=== PATIENT | female | born 1995 | race Caucasian/White ===

== ENCOUNTER 2024-05-04 12:14 | Inpatient (IN) | payer OTHER ==
[~2024-05-04] VITALS: Ht 154.9 cm; Wt 53.5 kg
[2024-05-04] MEDS ORDERED: TRANEXAMIC ACI650 MG PO (13:03)
[2024-05-04] MEDS ORDERED: FERRO-TIME325 MG PO (13:03)
[2024-05-04] MEDS ORDERED: 0.9 % SODIUM CHLORIDE 1,000 ML IV STA (13:16)
[2024-05-04 14:24] LABS: HEMATOCRIT 30.9 % (36.0-45.00); MEAN CORPUSCULAR HGB CONC 32.5 g/dl (32.0-36.0); PLATELET COUNT 227 K/uL (150-450); RED BLOOD COUNT 3.87 M/uL (4.00-6.00)
[2024-05-04 14:26] LABS: RED CELL DISTRIBUTION WIDTH 25.7 % (11.5-14.5)
[2024-05-04] MEDS ORDERED: DESMOPRESSIN ACETATE 4 MCG/ML AMPUL IV ONE (14:30)
[2024-05-04] MEDS ORDERED: AMINOCAPROIC ACID 250 MG/ML VIAL IV ONE (14:30)
[2024-05-04 14:36] LABS: PH,URINE 7.5 (5.0-8.0); URINE APPEARANCE Clear; URINE BILIRRUBIN Negative (NEGATIVE); URINE BLOOD Moderate; URINE COLOR Yellow; URINE GLUCOSE Negative (NEGATIVE); URINE KETONE Negative (NEGATIVE); URINE LEUKOCYTE Negative; URINE NITRATE Negative; URINE PROTEIN Negative (NEGATIVE); URINE UROBILINOGEN 0.2 E.U./dl
[2024-05-04 14:41] LABS: URINE BACTERIA 63.5 uL (0.0-1933); URINE RBC 12.7 uL (0.0-20.8)
[2024-05-04 15:08] LABS: INR 0.97; PARTIAL THROMBOPLASTIN TIME 27.8 SECONDS (22.0-34.0); PROTHROMBIN TIME 10.6 SECONDS (9.0-11.5)
[2024-05-04 15:20] LABS: URINE EPITHELIAL CELLS 1.1 uL (0.0-38.8); URINE WBC 1.2 uL (0.0-23.2)
[2024-05-04 16:03] LABS: ALBUMIN 3.4 gm/dL (3.4-5.0); BILIRUBIN TOTAL 0.17 mg/dL (0.3-1.2); CALCIUM 8.6 mg/dL (8.5-10.1); CREATININE SERUM 0.61 mg/dL (0.55-1.02); GFR 114.4; GLOBULINA 3.9 G/DL (2.4-3.5); POTASSIUM 3.94 mEq/L (3.5-5.1); TOTAL PROTEIN 7.3 gm/dL (6.4-8.2)
[2024-05-04] MEDS ORDERED: ACETAMINOPHEN 500 MG GEL..CAP PO PRN (19:00)
[2024-05-04] MEDS ORDERED: 0.9 % SODIUM CHLORIDE 1,000 ML IV SCH (19:00)
[2024-05-05] VITALS: BP 136/85; O2SAT 98
[2024-05-05 01:30] VITALS: BP 136/74
[2024-05-05] MEDS ORDERED: AMINOCAPROIC ACID 250 MG/ML VIAL IV SCH (05:00)
[2024-05-05 08:00] VITALS: BP 140/80
[2024-05-05] MEDS ORDERED: SOD FERRIC GLUC COMPLX/SUCROSE 62.5 MG in 0.9 % SODIUM CHLORIDE 50 ML IV SCH (09:00)
[2024-05-05] MEDS ORDERED: PANTOPRAZOLE SODIUM 40 MG/VIAL VIAL IV SCH (09:00)
[2024-05-05] MEDS ORDERED: OxyCODONE HCL/APAP UD (PERCOCET) PO PRN (14:30)
[2024-05-05 16:17] VITALS: BP 144/88
[2024-05-05] MEDS ORDERED: CYCLOBENZAPRINE HCL 5 MG TABLET PO SCH (17:00)
[2024-05-05 19:28] LABS: HEMOGLOBIN 11.4 g/dL (12.0-15.00); MEAN CELL VOLUME 82.5 fL (80.00-100.00); MEAN CORPUSCULAR HEMOGLOBIN 26.8 pg (27.00-32.0); MEAN CORPUSCULAR HGB CONC 32.4 g/dl (32.0-36.0); PLATELET COUNT 207 K/uL (150-450); RED BLOOD COUNT 4.25 M/uL (4.00-6.00); RED CELL DISTRIBUTION WIDTH 23.2 % (11.5-14.5)
[2024-05-06 00:40] VITALS: BP 117/73
[2024-05-06] MEDS ORDERED: PATIENTS OWN MEDICATION (MEDICAMENTO EN PISO) PO SCH (01:00)
[2024-05-06] MEDS ORDERED: AMINOCAPROIC ACID 1,000 MG in 0.9 % SODIUM CHLORIDE 250 ML IV SCH ×3 (07:15→13:00)
[2024-05-06 08:00] VITALS: BP 123/80
[2024-05-06] MEDS ORDERED: AMINOCAPROIC ACID 20 MG/ML ML IV SCH (09:00)
[2024-05-06 11:32] LABS: HEMATOCRIT 35.6 % (36.0-45.00); HEMOGLOBIN 11.7 g/dL (12.0-15.00); MEAN CELL VOLUME 82.2 fL (80.00-100.00); MEAN CORPUSCULAR HEMOGLOBIN 27.1 pg (27.00-32.0); PLATELET COUNT 215 K/uL (150-450); RED BLOOD COUNT 4.33 M/uL (4.00-6.00); RED CELL DISTRIBUTION WIDTH 23.4 % (11.5-14.5)
[2024-05-06 16:03] VITALS: BP 132/85
[2024-05-06] MEDS ORDERED: VASOPRESSIN 20 UNITS/ML VIAL IJ ONE (22:30)
[2024-05-07 00:07] VITALS: BP 113/71
[2024-05-07] MEDS ORDERED: BUPIVACAINE HCL/MPF 0.5% 30ML VIAL ONE (06:56)
[2024-05-07] MEDS ORDERED: POVIDONE-IODINE 118 ML BOTT TOP ONE ×2 (06:56→09:45)
[2024-05-07] MEDS ORDERED: LIDOCAINE HCL 1%/EPINEPHRINE 20ML VIAL IJ ONE (06:56)
[2024-05-07] MEDS ORDERED: AMINOCAPROIC ACID 250 MG/ML VIAL IV ONE (07:10)
[2024-05-07 07:39] LABS: HEMATOCRIT 33.3 % (36.0-45.00); MEAN CELL VOLUME 83.3 fL (80.00-100.00); MEAN CORPUSCULAR HEMOGLOBIN 27.4 pg (27.00-32.0); MEAN CORPUSCULAR HGB CONC 32.9 g/dl (32.0-36.0); PLATELET COUNT 235 K/uL (150-450); RED CELL DISTRIBUTION WIDTH 23.8 % (11.5-14.5)
[2024-05-07] MEDS ORDERED: AMINOCAPROIC ACID 250 MG/ML VIAL IV NR (08:00)
[2024-05-07] MEDS ORDERED: DESMOPRESSIN ACETATE 4 MCG/ML AMPUL IV NR (08:00)
[2024-05-07] MEDS ORDERED: CEFAZOLIN SODIUM 1,000 MG VIAL ONE (08:07)
[2024-05-07] MEDS ORDERED: PANTOPRAZOLE SODIUM 40 MG/VIAL VIAL ONE (09:41)
[2024-05-07] MEDS ORDERED: CEFAZOLIN SODIUM 1,000 MG VIAL IV ONE (09:45)
[2024-05-07] MEDS ORDERED: THROMBIN,HU/FIBRINOGEN/CALCIUM 10 ML SYRINGE TOP ONE ×2 (10:07→10:15)
[2024-05-07] MEDS ORDERED: VISTASEAL DUAL APPICATOR 1 EACH APPL TOP ONE ×2 (10:07→10:15)
[2024-05-07] MEDS ORDERED: SUGAMMADEX SODIUM 200 MG/2 ML VIAL IV ONE ×2 (11:44→12:15)
[2024-05-07] MEDS ORDERED: MORPHINE SULFATE 4 MG/ML VIAL IV ONE ×2 (13:10→13:40)
[2024-05-07] MEDS ORDERED: RINGERS SOLUTION,LACTATED 1,000 ML IV SCH (13:30)
[2024-05-07 13:57] VITALS: BP 123/79
[2024-05-07] MEDS ORDERED: FAMOTIDINE/PF 20 MG/2 ML VIAL IV SCH (14:26)
[2024-05-07] MEDS ORDERED: OxyCODONE HCL/APAP UD (PERCOCET) PO PRN (14:45)
[2024-05-07] MEDS ORDERED: ONDANSETRON HCL 2 MG/ML VIAL IV PRN (14:45)
[2024-05-07 15:00] VITALS: BP 115/74
[2024-05-07 15:42] VITALS: O2SAT 100
[2024-05-07] MEDS ORDERED: SOD FERRIC GLUC COMPLX/SUCROSE 62.5 MG in 0.9 % SODIUM CHLORIDE 50 ML IV SCH (17:00)
[2024-05-07 17:31] LABS: HEMATOCRIT 34.4 % (36.0-45.00); HEMOGLOBIN 10.9 g/dL (12.0-15.00); MEAN CELL VOLUME 84.8 fL (80.00-100.00); MEAN CORPUSCULAR HEMOGLOBIN 26.9 pg (27.00-32.0); MEAN CORPUSCULAR HGB CONC 31.8 g/dl (32.0-36.0); PLATELET COUNT 219 K/uL (150-450); RED BLOOD COUNT 4.05 M/uL (4.00-6.00); RED CELL DISTRIBUTION WIDTH 23.7 % (11.5-14.5)
[2024-05-07] MEDS ORDERED: PROMETHAZINE HCL 50 MG/ML AMPUL IM ONE (18:45)
[2024-05-07] MEDS ORDERED: MORPHINE SULFATE 2 MG/ML CARTRIDGE IV PRN (19:00)
[2024-05-07] MEDS ORDERED: PROMETHAZINE HCL 25 MG/ML AMPUL IV NR (19:00)
[2024-05-08 02:29] VITALS: BP 116/65
[2024-05-08 04:02] LABS: HEMATOCRIT 30.4 % (36.0-45.00); HEMOGLOBIN 10.2 g/dL (12.0-15.00); MEAN CELL VOLUME 82.2 fL (80.00-100.00); MEAN CORPUSCULAR HEMOGLOBIN 27.4 pg (27.00-32.0); MEAN CORPUSCULAR HGB CONC 33.4 g/dl (32.0-36.0); PLATELET COUNT 220 K/uL (150-450); RED CELL DISTRIBUTION WIDTH 23.7 % (11.5-14.5)
[2024-05-08 08:04] VITALS: BP 119/81
[2024-05-08] MEDS ORDERED: OxyCODONE HCL 5 MG TABLET (ROXICODONE) PO SCH (08:19)
[2024-05-08 16:00] VITALS: BP 122/78
[2024-05-08] MEDS ORDERED: FAMOtidine 20 MG TABLET PO SCH (17:00)
[2024-05-09] MEDS ORDERED: PANTOPRAZOLE SODIUM 40 MG TABLET.DR PO SCH (09:00)
== END 2024-05-08 19:53 | disposition home or self-care (01) | DRG 742 ==
LOC: ER 12:16 → SEC-K 19:28 → OB/GYN 19:28
PROVIDERS: Emergency Medicine; Student in an Organized Health Care Education/Training Program; ADMIT Student in an Organized Health Care Education/Training Program; ATTEND Student in an Organized Health Care Education/Training Program
PROC: 30233N1 Transfusion of Nonautologous Red Blood Cells into Peripheral Vein, Percutaneous Approach (ICD-10-PCS; 2024-05-05)
PROC: 0UDB8ZZ Extraction of Endometrium, Via Natural or Artificial Opening Endoscopic (ICD-10-PCS; 2024-05-07)
PROC: 0UDB8ZZ Extraction of Endometrium, Via Natural or Artificial Opening Endoscopic (ICD-10-PCS; 2024-05-07)
PROC: 8E0W4CZ Robotic Assisted Procedure of Trunk Region, Percutaneous Endoscopic Approach (ICD-10-PCS; 2024-05-07)
PROC: 3E1P88Z Irrigation of Female Reproductive using Irrigating Substance, Via Natural or Artificial Opening Endoscopic (ICD-10-PCS; 2024-05-07)
PROC: 0UB94ZZ Excision of Uterus, Percutaneous Endoscopic Approach (ICD-10-PCS; principal; 2024-05-07 07:00)
DX: D25.9 Leiomyoma of uterus, unspecified (principal); D68.00 Von Willebrand disease, unspecified; J45.909 Unspecified asthma, uncomplicated; K21.9 Gastro-esophageal reflux disease without esophagitis; N93.9 Abnormal uterine and vaginal bleeding, unspecified; D50.0 Iron deficiency anemia secondary to blood loss (chronic)
CPT/HCPCS: 58545; 58558; 58350; 36430; S2900